=== PATIENT | female | born 1945 | race Caucasian/White ===

== ENCOUNTER 2017-04-16 16:05 | Observation (INO) | payer OTHER ==
[~2017-04-16 16:05] MED LIST: ATOR40TA16 PO; CLON0.2T PO; CORE25TA PO; FURO40TA PO; GLIP10TA6 PO; LOSA100T PO; METF500T PO; OMEP40CA2 PO; POTA-163 PO; WARF4TAB51 PO
[2017-04-16] MEDS ORDERED: ACETAMINOPHEN 500 MG CPLT PO PRN (17:15)
[2017-04-16] MEDS ORDERED: ONDANSETRON HCL 4 MG/2 ML VIAL IV PUSH PRN (18:00)
[2017-04-16] MEDS ORDERED: NITROGLYCERIN 0.4 MG SL 25 TABS/BTL SL PRN (18:00)
[2017-04-16] MEDS ORDERED: SODIUM CHLORIDE 0.9% FLUSH 10 ML FLUSH IV FLUSH PRN (18:00)
[2017-04-16 19:20] LABS: CREATINE KINASE 138 U/L (26-192)
[2017-04-16 19:33] LABS: CKMB LESS THAN 0.5 NG/ML (0.5-3.6)
[2017-04-16 20:00] VITALS: PULSE 71
[2017-04-16] MEDS ORDERED: DEXTROSE 50% IN WATER 50 ML VIAL(D50) IV PUSH PRN ×2 (20:00→20:30)
[2017-04-16] MEDS ORDERED: GLUCAGON 1 MG/ML VIAL OTHER PRN ×2 (20:00→20:30)
[2017-04-16 20:11] VITALS: BP 213/95; PULSE 71; RESP 18; TEMP 98.1; O2SAT 95
--- NOTE | 2017-04-16 20:23 | HHI.HP ---
HPI Primary Care Physician [facility] in [place], [place] Chief Complaint Uncontrolled blood pressure and blood glucose History of Present Illness 71-year-old female presents to emergency room for further evaluation of uncontrolled blood pressure and blood sugar. Reports long-standing uncontrolled blood pressure and blood glucose, seen primary physician 1 week ago. Reports clonidine change 0.1 mg twice a day to 0.2 mg twice a day and metformin 250 mg changed from twice a day to 3 times a day. Reports polydipsia and polyuria "for a long time." Endorses her PCP has encouraged her to start insulin to better control her diabetes although she refuses to start insulin. She came to the emergency room for further evaluation. Denies any chest pain, pressure, or discomfort. Upon further questioning she remembers having chest pain when laying on her left or right side for a long time in the inframammary areas, since mitral valve replacement in 2014. Denies any exertional or nonexertional chest pain. No history of coronary artery disease. Review of Systems General: No increased fatigue, states she is normally fatigue since valve replacement. No fever, chills, or recent illness. CV: As stated above. Did not present to the emergency room for chest pain, pressure, or discomfort. Continues to deny chest pain or pressure. Poor historian in regards to valve replacement, card information printed and placed on chart. RESP: No SOB, cough, or sputum production. GI: No nausea, vomiting, bowel changes, diarrhea, melena, or blood in the stool. No change in appetite, no unintentional weight gain or weight loss. Polydipsia "for a long time." : Polyuria 1 week but also states "for a long time." No dysuria, urgency, or frequency. EXT: No lower leg edema, no paraesthesias MS: No discomfort or change in ROM NEURO: No change in memory, difficulty with balance, LOC, motor/sensory deficits PSYCH: No anxiety, depression, or situational stress SKIN: No rashes, no concerning lesions Past Family Social History Allergies: Coded Allergies: No Known Allergies (Unverified , 04/16/17) Past Medical History Type II Diabetes, Hypertension, GERD Past Surgical History Mitral valve replacement (01/26/2015 Dr Anderson Frances) Reported Medications Active Reported Omeprazole 40 Mg Cap 40 Mg PO DAILY Glipizide 10 Mg Tab 10 Mg PO DAILY Take 30 minutes before a meal Atorvastatin (Atorvastatin Calcium) 40 Mg Tab 40 Mg PO HS Clonidine (Clonidine HCl) 0.2 Mg Tab 0.2 Mg PO BID Losartan (Losartan Potassium) 100 Mg Tab 200 Mg PO DAILY Warfarin 2 Mg Tab 2 Mg PO DAILY Potassium Chloride ER (Potassium Chloride) 20 Meq Tab 20 Meq PO DAILY Furosemide 40 Mg Tab 40 Mg PO DAILY Coreg (Carvedilol) 25 Mg Tab 25 Mg PO BID Metformin (Metformin HCl) 500 Mg Tab 250 Mg PO TIDPC With meals Active Ordered Medications Current Medications Medications (Trade) Dose Ordered Sig/Amarilis Route Start Time Stop Time Status Last Admin (NS Flush) 2 ml UNSCH PRN IV FLUSH 04/16/17 18:00 (NS Flush) 2 ml BID IV FLUSH 04/16/17 21:00 (Tylenol) 500 mg Q4H PRN PO 04/16/17 17:15 (Zofran Inj) 4 mg Q6H PRN IV PUSH 04/16/17 18:00 (Nitrostat Sl) 0.4 mg Q5M PRN SL 04/16/17 18:00 (Aspirin) 325 mg DAILY PO 04/17/17 09:00 Social History Known diabetes, hypertension, and hyperlipidemia. Denies any personal coronary artery disease, past myocardial infarction, or coronary artery blockages. Lifelong nonsmoker. Denies any alcohol or illegal drug use. . Endorses sedentary lifestyle since valve replacement, stating she was much more active prior to surgery. Past cardiac testing Patient's public transportation inspector is Dr. Chatman[place], [place]. Seen last month. No recent stress testing. Physical Exam Physical Exam GENERAL: Alert WN, WD, NAD, pleasant, elderly female HEAD: NC, AT EYES: Sclera clear, pupils equal and round, cataracts bilateral removed ENT: Mucous membranes dry and pale CV: RRR, without murmur, rub, gallop, no JVD, S1-S2 no S3-S4. RESP: Clear lungs throughout bilateral, no crackles, wheeze, rhonchi, symmetrical chest rise, nonlabored, able to speak in full sentences ABD: Soft, NT, ND, no masses, positive bowel tones EXT: Pulses +24, no dependent edema MS: Normal tone 4 extremities, nontender, no obvious deformities, full range of motion NEURO: CN II through CN XII grossly intact, motor strength 5/5 PSYCH: A+O 3, pleasant affect, appropriate speech, appropriate mood and affect , insight and judgment SKIN: Normal turgor, normal texture, no lesions, no rashes Laboratory Laboratory data completed and [facility] CBC unremarkable, CMP unremarkable other than glucose 285. BMP 250. INR 3.4 Troponins 3 negative Imaging Chest x-ray interpreted by radiologist postsurgical changes. No acute abnormalities is identified. Course EKG Normal sinus rhythm, nonspecific T-wave changes Caprini VTE Risk Assessment Caprini VTE Risk Assessment: Mod/High Risk (score >= 2) Caprini Risk Assessment Model Point Value = 1 Point Value = 2 Point Value = 3 Point Value = 5 Age 41-60 Minor surgery BMI > 25 kg/m2 Swollen legs Varicose veins or History of unexplained or recurrent spontaneous Oral contraceptives or hormone replacement Sepsis (< 1 month) Serious lung disease, including pneumonia (< 1 month) Abnormal pulmonary function Acute myocardial infarction Congestive heart failure (< 1 month) History of inflammatory bowel disease Medical patient at bed rest Age 61-74 Arthroscopic surgery Major open surgery (> 45 min) Laparoscopic surgery (> 45 min) Malignancy Confined to bed (> 72 hours) Immobilizing plaster cast Central venous access Age >= 75 History of VTE Family history of VTE Factor V Leiden Prothrombin [id number] Lupus anticoagulant Anticardiolipin antibodies Elevated serum homocysteine Heparin-induced thrombocytopenia Other congenital or acquired thrombophilia Stroke (< 1 month) Elective arthroplasty Hip, pelvis, or leg fracture Acute spinal cord injury (< 1 month) Prophylaxis Regimen Total Risk Factor Score Risk Level Prophylaxis Regimen 0-1 Low Early ambulation 2 Moderate Order ONE of the following: *Sequential Compression Device (SCD) *Heparin 5000 units SQ BID 3-4 Higher Order ONE of the following medications: *Heparin 5000 units SQ TID *Enoxaparin/Lovenox 40 mg SQ daily (WT < 150 kg, CrCl > 30 mL/min) *Enoxaparin/Lovenox 30 mg SQ daily (WT < 150 kg, CrCl > 10-29 mL/min) *Enoxaparin/Lovenox 30 mg SQ BID (WT < 150 kg, CrCl > 30 mL/min) AND/OR *Sequential Compression Device (SCD) 5 or more Highest Order ONE of the following medications: *Heparin 5000 units SQ TID (Preferred with Epidurals) *Enoxaparin/Lovenox 40 mg SQ daily (WT < 150 kg, CrCl > 30 mL/min) *Enoxaparin/Lovenox 30 mg SQ daily (WT < 150 kg, CrCl > 10-29 mL/min) *Enoxaparin/Lovenox 30 mg SQ BID (WT < 150 kg, CrCl > 30 mL/min) AND *Sequential Compression Device (SCD) Assessment and Plan Assessment and Plan Admitted to chest pain center. Will complete standard cardiac testing including 3 sets of EKGs, cardiac enzymes, and monitor overnight. Patient has denied any chest pain, pressure, or discomfort. Reporting normal chest discomfort when laying on her right or left side for prolonged periods the side she laid on would hurt inframammary areas. Reassurance provided pain may be related to post surgical changes, not a cardiac symptom. Will be seen and evaluated by Dr. Trell Vann in a.m. Most likely will not require any further cardiac testing, this will be determined by Dr. Vann. Discussed this in length with patient, , and son whom is at bedside. All agreeable to plan of care. Hypertension-continue to monitor, continue clonidine, losartan, and clonidine. Monitor overnight and reassess in a.m. Encouraged a low sodium diet and close follow-up with her PCP. Uncontrolled type 2 diabetes-hold metformin and glipizide, SSI moderate dose coverage. Educated in length importance of tight blood glucose control and how diabetes is a progressive disease. Encouraged her to highly consider her PCPs recommendation for insulin therapy. History of mitral valve replacement-INR slightly elevated at 3.4, patient reporting no change in Warfarin in 3 years, will continue at discharge at previously ordered as most likely discharge tomorrow. GERD-continue omeprazole Christa Magallanes Apr 16, 2017 19:10
[2017-04-16] MEDS ORDERED: INSULIN ASPART SUPPLEMENTAL SCALE SQ SCH (21:00)
[2017-04-16] MEDS ORDERED: ATORVASTATIN 40 MG TAB PO SCH (21:00)
[2017-04-16] MEDS: SODIUM CHLORIDE 0.9% FLUSH 10 ML FLUSH IV FLUSH SCH (21:46)
[2017-04-16] MEDS: cloNIDine HCL 0.2 MG TAB PO SCH (21:46)
[2017-04-16] MEDS: CARVEDILOL 12.5 MG TAB PO SCH (21:46)
[2017-04-16] MEDS: INSULIN ASPART SUPPLEMENTAL SCALE SQ SCH (21:57)
[2017-04-17] VITALS: PULSE 64
[2017-04-17 00:37] VITALS: BP 180/83; PULSE 64; RESP 18; TEMP 98.1; O2SAT 96
[2017-04-17 04:25] VITALS: BP 175/76; PULSE 67; RESP 18; TEMP 98.1; O2SAT 96
[2017-04-17 07:25] VITALS: BP 184/84; PULSE 68; RESP 20; TEMP 98; O2SAT 97
[2017-04-17] MEDS: INSULIN ASPART SUPPLEMENTAL SCALE SQ SCH (08:00)
[2017-04-17] MEDS: CARVEDILOL 12.5 MG TAB PO SCH (08:44)
[2017-04-17] MEDS: cloNIDine HCL 0.2 MG TAB PO SCH (08:45)
[2017-04-17] MEDS: SODIUM CHLORIDE 0.9% FLUSH 10 ML FLUSH IV FLUSH SCH (08:49)
[2017-04-17] MEDS ORDERED: LOSA100T PO (08:54)
[2017-04-17] MEDS ORDERED: AMLO5TAB2 PO (08:54)
--- NOTE | 2017-04-17 08:56 | HHI.DCPOC ---
Discharge Care Plan Diagnosis: (1) Hypertension (2) Chest pain (3) Hyperlipidemia (4) DM (diabetes mellitus) (5) Hx of mitral valve repair Goals to Promote Your Health DISCUSS WITH YOUR SALES SUPPORT REP IF YOU NEED TO REMAIN ON WARFARIN. * To prevent worsening of your condition and complications * To maintain your health at the optimal level Directions to Meet Your Goals Take your medications as prescribed Follow your dietary instruction Follow activity as directed Keep your appointments as scheduled Take your immunizations and boosters as scheduled If your symptoms worsen call your PCP, if no PCP go to Urgent Care Center or Emergency Room Smoking is Dangerous to Your Health. Avoid second hand smoke Call the 24-hour hour crisis hotline for domestic abuse at [facility] Apr 17, 2017 08:56
[2017-04-17] MEDS ORDERED: ASPIRIN 325 MG TAB PO SCH (09:00)
[2017-04-17] MEDS ORDERED: POTASSIUM CHLORIDE 20 MEQ CONTROLLED RELEASE TAB PO SCH (09:00)
[2017-04-17] MEDS ORDERED: PANTOPRAZOLE SOD 40 MG DELAYED RELEASE TAB PO SCH (09:00)
[2017-04-17] MEDS ORDERED: LOSARTAN 50 MG TAB PO SCH (09:00)
[2017-04-17] MEDS ORDERED: FUROSEMIDE 40 MG TAB PO SCH (09:00)
[2017-04-17] MEDS ORDERED: glipiZIDE 10 MG TAB PO SCH (09:00)
[2017-04-17 10:37] VITALS: BP 150/71; PULSE 67
--- NOTE | 2017-04-17 11:19 | EKG ---
Date Performed: 04/16/2017 Time Performed: 18:47:47 PTAGE: 71 years EKG: Sinus rhythm WITH SINUS ARRHYTHMIA MODERATE T-WAVE ABNORMALITY, CONSIDER ANTERIOR ISCHEMIA ABNORMAL ECG NO PREVIOUS TRACING DOCTOR: Trell Vann Interpretating Date/Time 04/17/2017 11:19:13
== END 2017-04-17 10:55 | disposition home or self-care (01) ==
LOC: NEDDLT 16:05 → NEPFCDU 16:15
PROVIDERS: ADMIT Internal Medicine Interventional Cardiology; ATTEND Internal Medicine Interventional Cardiology
DX: I10 Essential (primary) hypertension (principal); R07.89 Other chest pain; E78.5 Hyperlipidemia, unspecified; E11.9 Type 2 diabetes mellitus without complications; K21.9 Gastro-esophageal reflux disease without esophagitis; R63.1 Polydipsia; Z79.84 Long term (current) use of oral hypoglycemic drugs; Z95.2 Presence of prosthetic heart valve; R94.31 Abnormal electrocardiogram [ECG] [EKG]
CPT/HCPCS: 71010; 80053; 82550; 82552; 82948; 83690; 83735; 83880; 84484; 85025; 85610; 85730; 93005; 96374; 99285; G0378; J0360; J1815; 99281